=== PATIENT | male | born 2000 | race Caucasian/White ===

== ENCOUNTER 2020-03-24 05:14 | Day surgery (SDC) | payer BC ==
[~2020-03-24] VITALS: Ht 190.5 cm; Wt 85.0 kg
[2020-03-24] MEDS ORDERED: LACTATED RINGERS 1,000 ML IV SCH (06:17)
[2020-03-24] MEDS ORDERED: HYDR-3622 PO (06:19)
[2020-03-24] MEDS ORDERED: CHLORHEXIDINE 15 ML UDC MM ONE (06:30)
[2020-03-24 06:53] VITALS: BP 129/79
[2020-03-24] MEDS ORDERED: BACITRACIN 50,000 UNIT ONE (07:16)
[2020-03-24] MEDS ORDERED: FENTANYL PF 250 MCG/5ML ONE (07:16)
[2020-03-24] MEDS ORDERED: MIDAZOLAM 1 MG/ML, 2ML ONE (07:16)
[2020-03-24] MEDS ORDERED: LIDOCAINE 1%-EPI 1:100K, 20ML ONE (07:16)
[2020-03-24] MEDS ORDERED: BUPIVACAINE/PF-EPI 0.25% 1:200K ONE (07:23)
[2020-03-24] MEDS ORDERED: CLINDAMYCIN 150 MG/ML, 6ML ONE (07:57)
[2020-03-24] MEDS ORDERED: PROMETHAZINE 25 MG/ML, 1ML IV PRN (08:30)
[2020-03-24] MEDS ORDERED: OXYcodone 5 MG/5 ML ORAL.SOL UDC PO PRN (08:30)
[2020-03-24] MEDS ORDERED: LORazepam 2 MG/ML, 1ML IVPush PRN (08:30)
[2020-03-24] MEDS ORDERED: ONDANSETRON 2MG/ML, 2ML IV PRN (08:30)
[2020-03-24] MEDS ORDERED: PROMETHAZINE 25 MG SUPP PR PRN (08:30)
[2020-03-24] MEDS ORDERED: MEPERIDINE/PF 25MG/ML,1ML IVPush PRN (08:30)
[2020-03-24] MEDS ORDERED: PROMETHAZINE 12.5 MG SUPP PR PRN (08:30)
[2020-03-24] MEDS ORDERED: ACETAMINOPHEN 325 MG TABLET PO PRN (08:30)
[2020-03-24] MEDS ORDERED: ONDANSETRON ODT 8 MG PO PRN (08:30)
[2020-03-24] MEDS ORDERED: HYDROmorphone 2 MG/ML, 1ML IVPush PRN (08:30)
[2020-03-24] MEDS ORDERED: ONDANSETRON 2MG/ML, 2ML ONE (08:54)
[2020-03-24] MEDS ORDERED: PROPOFOL 10 MG/ML, 20ML ONE (08:54)
[2020-03-24] MEDS ORDERED: GLYCOPYRROLATE 0.2MG/1ML, 5ML ONE (08:54)
[2020-03-24] MEDS ORDERED: SUCCINYLCHOLINE 20 MG/ML, 10ML ONE (08:54)
[2020-03-24] MEDS ORDERED: CEFAZOLIN 1,000 MG ONE (08:54)
[2020-03-24] MEDS ORDERED: NEOSTIGMINE 1 MG/ML, 10ML ONE (08:54)
[2020-03-24] MEDS ORDERED: LIDOCAINE-MPF 2% ,5ML ONE (08:54)
[2020-03-24] MEDS ORDERED: DEXAMETHASONE 4 MG/ML, 1ML ONE (08:54)
[2020-03-24] MEDS ORDERED: ROCURONIUM 10MG/ML,5ML ONE (08:54)
[2020-03-24] MEDS ORDERED: FENTANYL PF 100 MCG/2ML ONE (10:31)
[2020-03-24] MEDS ORDERED: ACETAMINOPHEN 650 MG/20.3 ML UDC ONE (10:31)
[2020-03-24] MEDS ORDERED: OXYcodone 5 MG/5 ML ORAL.SOL UDC ONE (10:32)
[2020-03-24] MEDS: FENTANYL PF 100 MCG/2ML IV PRN ×2 (10:37→10:43)
== END 2020-03-24 12:00 | disposition home or self-care (01) ==
LOC: OUT 05:14
PROVIDERS: ATTEND Orthopaedic Surgery
DX: S42.022A Displaced fracture of shaft of left clavicle, initial encounter for closed fracture (principal); Z79.891 Long term (current) use of opiate analgesic; Z88.1 Allergy status to other antibiotic agents; V18.0XXA Pedal cycle driver injured in noncollision transport accident in nontraffic accident, initial encounter; Y93.55 Activity, bike riding; Y92.828 Other wilderness area as the place of occurrence of the external cause; Y99.8 Other external cause status
CPT/HCPCS: 23515; 73000; C1713; J0330; J0690; J1100; J2250; J2405; J2704; J2710; J3010; J3490; J7120; 76000